=== PATIENT | male | born 1950 | race Caucasian/White ===

== ENCOUNTER 2024-08-06 12:43 | Outpatient (CLI) | payer OTHER, SELFPAY ==
--- NOTE | ~2024-08-06 | MR_ITS ---
EXAMINATION: MR femur LT wo con DATE: 08/06/2024 13:45 INDICATION: Left thigh pain. TECHNIQUE: Magnetic resonance imaging (MRI) of the left thigh was performed without intravenous contr ast. COMPARISON: None. FINDINGS: Alignment is normal. No fracture. There is mild tendinopathy of left hamstring origin. Ther e is a large knee joint effusion. There is edema in the distal thigh. There is increasing signal in a dductor nancy at its myotendinous junction, consistent with mild strain. There is a left inguinal he rnia containing fat. The prostate is mildly enlarged. IMPRESSION: 1. Mild strain of adductor nancy muscle (grade 1). 2. Large left knee joint effusion. 3. Left inguinal hernia containing fat. Reviewed, dictated and finalized at location A. [employer] [employer]
== END 2024-08-06 12:44 | disposition home or self-care (01) ==
PROVIDERS: PCP Physician Assistant; Visit Provider Physician Assistant
DX: S76.212A Strain of adductor muscle, fascia and tendon of left thigh, initial encounter (principal); M25.462 Effusion, left knee; K40.90 Unilateral inguinal hernia, without obstruction or gangrene, not specified as recurrent; X58.XXXA Exposure to other specified factors, initial encounter
CPT/HCPCS: 73718